=== PATIENT | female | born 1985 | race Caucasian/White ===

== ENCOUNTER 2017-05-14 08:26 | Emergency (ER) | payer BC ==
[2017-05-14 08:44] VITALS: BP 124/65
[2017-05-14] MEDS ORDERED: Ondansetron ODT TAB* 4 MG PO ONE (09:04)
--- NOTE | 2017-05-14 09:08 | UC ---
Abdominal Pain Female HPI - HPI Summary HPI Summary: 31 yo female has had cough and runny nose for one week no f/c no Rasheed or myalgias no CP or SOB this am developed n/vx5/diarrhea x 5 she has a 9 month old she breast feeds - History of Current Complaint Chief Complaint: UCGeneralIllness Stated Complaint: COUGH, AND VOMITING Time Seen by Provider: 05/14/17 08:41 Hx Obtained From: Patient Hx Last Menstrual Period: breast feeding Onset/Duration: Sudden Onset, Lasting Hours Timing: Constant Severity Initially: Mild Severity Currently: Mild Pain Intensity: 4 Pain Scale Used: 0-10 Numeric Location: Diffuse Radiates: No Character: Cramping Aggravating Factor(s): Other: Alleviating Factor(s): NPO Associated Signs and Symptoms: Positive: Cough - x 1 week, Nausea, Vomiting - x5 , Diarrhea - x5 Allergies/Adverse Reactions: Allergies Allergy/AdvReac Type Severity Reaction Status Date / Time No Known Allergies Allergy Verified 05/14/17 08:38 PMH/Surg Hx/FS Hx/Imm Hx Previously Healthy: Yes Respiratory History: Asthma - Surgical History Surgical History: None - Family History Known Family History: Positive: Hypertension - Social History Alcohol Use: Rare Substance Use Type: None Smoking Status (MU): Never Smoked Tobacco Review of Systems Respiratory: Cough Gastrointestinal: Abdominal Pain - mild, Vomiting, Diarrhea, Nausea Motor: Negative Neurovascular: Negative Musculoskeletal: Negative Neurological: Negative Psychological: Negative Is Patient Immunocompromised?: No All Other Systems Reviewed And Are Negative: Yes Physical Exam Triage Information Reviewed: Yes Appearance: Well-Appearing, No Pain Distress, Well-Nourished Vital Signs: Initial Vital Signs Temp 98.6 F 05/14/17 08:40 Pulse 112 05/14/17 08:40 Resp 20 05/14/17 08:40 BP 124/65 05/14/17 08:40 Pulse Ox 99 05/14/17 08:40 Eyes: Positive: Conjunctiva Clear ENT: Positive: Nasal drainage, TMs normal, Tonsillar swelling, Uvula midline. Negative: Tonsillar exudate, Trismus, Muffled voice, Dental tenderness, Sinus tenderness Dental Exam: Normal Neck: Positive: Supple, Nontender, No Lymphadenopathy Respiratory: Positive: Lungs clear, Normal breath sounds, No respiratory distress, No accessory muscle use Cardiovascular: Positive: RRR, No Murmur, Tachycardia Abdomen Description: Positive: Nontender, No Organomegaly. Negative: CVA Tenderness (R), CVA Tenderness (L) Bowel Sounds: Positive: Present Musculoskeletal: Positive: ROM Intact, No Edema Neurological: Positive: Alert Psychological Exam: Normal Skin Exam: Normal Diagnostics - Laboratory Diagnostic Studies Completed/Ordered: influenza (-) Abd Pain Female Course/Dx - Course Course Of Treatment: no nausea at discharge - Differential Dx/Diagnosis Provider Diagnoses: viral URI. gastroenteritis versus food poisoning Discharge - Discharge Plan Condition: Stable Disposition: HOME Prescriptions: Ondansetron TAB* [Zofran Tab*] 4 mg PO Q6H PRN #10 tab PRN Reason: Nausea Patient Education Materials: Dehydration (ED), Gastroenteritis (ED) Referrals: No Primary Care Phys,NOPCP [Primary Care Provider] - Additional Instructions: bring in stool for studies if things are not improving this afternoon I suggest you go to the ER as you may need IV hydration I suggest robitussin for cough
== END 2017-05-14 10:12 | disposition home or self-care (01) ==
LOC: UCEAST 08:26
DX: J06.9 Acute upper respiratory infection, unspecified (principal); R11.2 Nausea with vomiting, unspecified; R19.7 Diarrhea, unspecified; J45.909 Unspecified asthma, uncomplicated
CPT/HCPCS: 87045; 87046; 87328; 87329; 87502; 87899; 99202; A9270-GY; G0463